=== PATIENT | male | born 1990 | race Hispanic/Latino ===

== ENCOUNTER 2018-07-28 02:14 | Emergency (ER) | payer OTHER ==
[2018-07-28 02:32] VITALS: RESP 18; TEMP 98.6
[2018-07-28] MEDS ORDERED: Amoxicillin-Clav 875-125 mg Tab PO STA (02:52)
[2018-07-28] MEDS ORDERED: Amoxicillin-Clav 875-125 mg Tab PO ONE (02:58)
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
[2018-07-28 03:32] VITALS: BP 161/87; PULSE 89
[2018-07-28 05:56] VITALS: O2SAT 98
== END 2018-07-28 03:30 | disposition home or self-care (01) ==
LOC: H.ER 02:14
DX: S02.5XXA Fracture of tooth (traumatic), initial encounter for closed fracture (principal); Y35.811A Legal intervention involving manhandling, law enforcement official injured, initial encounter; Y99.0 Civilian activity done for income or pay